=== PATIENT | female | born 1990 | race Caucasian/White ===

== ENCOUNTER → 2018-06-24 16:17 | Outpatient (CLI) | payer OTHER, SELFPAY ==
[2018-06-30 16:06] LABS: HPV Reflexed? NOT INDICATED
== END ==
PROVIDERS: Family Provider Family Medicine; PCP Family Medicine; Referring Provider Obstetrics & Gynecology; Visit Provider Obstetrics & Gynecology
DX: Z12.4 Encounter for screening for malignant neoplasm of cervix (principal)
CPT/HCPCS: 88175; G0145

== ENCOUNTER → 2019-08-16 | Outpatient (CLI) | payer BC, SELFPAY ==
[2015-02-10 07:29] VITALS: BMI 35.0
[2019-08-21 17:45] LABS: HPV HC, High Risk Negative (Negative); HPV Reflexed? YES, CHARGE PATIENT
== END | disposition home or self-care (01) ==
LOC: LABSPEC 16:26
PROVIDERS: PCP Family Medicine; Referring Provider Advanced Practice Midwife; Visit Provider Advanced Practice Midwife
DX: Z12.4 Encounter for screening for malignant neoplasm of cervix (principal)
CPT/HCPCS: 87624; 88175; G0145

== ENCOUNTER → 2019-11-08 | Outpatient (CLI) | payer BC, SELFPAY ==
[2015-02-10 07:29] VITALS: BMI 35.0
[2019-11-08 20:48] LABS: Chlamydia Trachomatis by PCR Negative (Negative); Neisserai gonorrhoeae by PCR Negative (Negative); Probe Check PASS; Sample Adequacy Control PASS; Specimen Processing Control PASS
== END | disposition home or self-care (01) ==
PROVIDERS: Visit Provider Obstetrics & Gynecology
DX: Z11.3 Encounter for screening for infections with a predominantly sexual mode of transmission (principal)
CPT/HCPCS: 87491; 87591

== ENCOUNTER → 2019-11-21 14:26 | Outpatient (CLI) | payer BC, SELFPAY ==
[2019-11-21 15:10] LABS: Absolute Lymphocyte Count 2.23 X10^3/uL (0.83-4.51); Basophil# 0.01 X10^3/uL; Basophil% 0.1 % (0-1); Eosinophil# 0.07 X10^3/uL; Eosinophils% 0.5 % (0-5); Hematocrit 38.6 % (37-47); Hemoglobin 12.9 g/dL (12.0-15.0); Lymphocyte # 2.23 X10^3/ul (4.0); Lymphocyte % 17.2 % (19-41); Mean Corp Hgb Conc 33.4 g/dL (32-36); Mean Corpuscular Hgb 28.3 pg (27.0-32.0); Mean Corpuscular Volume 84.6 fL (81-99); Mean Platelet Vol. 12.2 fl (6.2-12.0); Monocyte# 0.67 X10^3/uL; Monocyte% 5.2 % (0-10); NRBC Flagged by Analyzer 0 % (0-5); Neutrophil # 9.96 X10^3/uL (2.7-7.7); Neutrophil % 76.6 % (47-70); Platelet Count 238 K/mm3 (150-450); RBC Distribution Width CV 12.8 % (11.6-14.6); RBC Distribution Width SD 38.9 fl (35.1-43.9); Red Blood Count 4.56 M/mm3 (4.2-5.4)
[2019-11-21 15:13] LABS: Color, Urine Straw (Yellow); Glucose, Dipstick Normal (Normal); Ketone-Dipstick Negative (Negative); Leukocyte Esterase-Dipstick Negative /ul (Negative); Nitrite-Dipstick Negative (Negative); Occult Blood-Urine Negative /ul (Negative); Protein-Dipstick Negative (Negative); Urine Bilirubin Dipstick Negative (Negative); Urine Clarity Clear (Clear); Urine Urobilinogen Normal (Normal)
[2019-11-21 15:15] LABS: Protein, Urine (Random) < 6.0 mg/dL (<11.9)
[2019-11-21 15:36] LABS: Amphetamine Urine VISTA NEGATIVE (<1000 ng/mL); Barbiturate Urine VISTA NEGATIVE (< 200 ng/mL); Benzodiazepine Urine VISTA NEGATIVE (< 200 ng/mL); Cocaine Urine VISTA NEGATIVE (< 300 ng/mL); Ecstacy Urine VISTA NEGATIVE (< 500 ng/mL); Methadone Urine VISTA NEGATIVE (< 300 ng/mL); PCP Urine VISTA NEGATIVE (< 25 ng/mL); THC Urine VISTA NEGATIVE (< 50 ng/mL); Vista UDS pH Range 6
[2019-11-21 15:49] LABS: ALB/GLOB Ratio 0.8 RATIO (0.9-2.4); AST(SGOT) 12 U/L (15-37); Alanine Aminotransfer ALT/SGPT 24 U/L (13-56); Albumin, Serum 3.4 g/dL (3.2-5.0); Alkaline Phosphatase 57 U/L (45-117); Anion Gap 7 (5-15); BUN 7 mg/dL (7-18); BUN/Creat Ratio 9.4 RATIO (10-20); Calcium,Total 9.2 mg/dL (8.5-10.1); Chloride 106 mmol/L (98-107); Creatinine, Serum 0.75 mg/dL (0.55-1.02); EST Glomerular Filtration Rate 96 mL/min (>60); Est Glom Filt Rate - Afr Amer 117 mL/min (>60); Glucose 102 mg/dL (74-106); Potassium 3.6 mmol/L (3.5-5.1); Protein, Total 7.4 g/dL (6.4-8.2); Sodium Level 139 mmol/L (136-145)
[2019-11-22 08:30] LABS: HIV - WCH Non-Reactive (Nonreactive); Hepatitis B Surface Antigen Non-Reactive (Nonreactive); Hepatitis C Antibody Non-Reactive (Nonreactive); Rubella IgG 45.8 IU/mL
[2019-11-23 02:20] LABS: Prenatal RPR NONREACTIVE (NONREACTIVE)
== END ==
PROVIDERS: Visit Provider Obstetrics & Gynecology
DX: O16.1 Unspecified maternal hypertension, first trimester (principal)
CPT/HCPCS: 36415; 80053; 80307; 81002; 84156; 84443; 85025; 86703; 86762; 86803; 87340

== ENCOUNTER → 2020-04-01 | Outpatient (CLI) | payer BC, OTHER, SELFPAY ==
[2020-04-01 10:40] LABS: Hematocrit 35.2 % (37-47); Hemoglobin 11.5 g/dL (12.0-15.0); Mean Corp Hgb Conc 32.7 g/dL (32-36); Mean Corpuscular Hgb 28.4 pg (27.0-32.0); Mean Corpuscular Volume 86.9 fL (81-99); Mean Platelet Vol. 12.9 fl (6.2-12.0); Platelet Count 156 K/mm3 (150-450); RBC Distribution Width CV 13.1 % (11.6-14.6); RBC Distribution Width SD 40.9 fl (35.1-43.9); Red Blood Count 4.05 M/mm3 (4.2-5.4); White Blood Count 11.4 K/mm3 (4.4-11.0)
[2020-04-01 10:47] LABS: Glucose Challenge Gest 1H 50g 171 mg/dL (70-140)
== END | disposition home or self-care (01) ==
LOC: WOBLAB 09:39
PROVIDERS: Visit Provider Student in an Organized Health Care Education/Training Program
DX: Z34.82 Encounter for supervision of other normal pregnancy, second trimester (principal)
CPT/HCPCS: 36415; 82950; 85027

== ENCOUNTER → 2020-04-09 | Outpatient (CLI) | payer OTHER, SELFPAY ==
[2020-04-09 10:35] LABS: Glucose GTT-Gestation. Fasting 99 mg/dL (<105)
[2020-04-09 11:33] LABS: Glucose GTT-Gestational 1 Hr 198 mg/dL (<190)
[2020-04-09 12:49] LABS: Glucose GTT-Gestational 2 Hr 206 mg/dL (<165)
[2020-04-09 14:15] LABS: Glucose GTT-Gestational 3 Hr 153 L (<145)
== END | disposition home or self-care (01) ==
LOC: LAB 09:33
PROVIDERS: Referring Provider Obstetrics & Gynecology; Visit Provider Obstetrics & Gynecology
DX: O24.912 Unspecified diabetes mellitus in pregnancy, second trimester (principal); Z3A.00 Weeks of gestation of pregnancy not specified
CPT/HCPCS: 36415; 82951; 82952

== ENCOUNTER 2020-04-29 10:05 | Outpatient (RCR) | payer OTHER, SELFPAY | END 2020-05-04 23:59 | LOC: DC 10:05 | PROVIDERS: Visit Provider Obstetrics & Gynecology | DX: Z71.3 Dietary counseling and surveillance (principal); O24.410 Gestational diabetes mellitus in pregnancy, diet controlled; Z3A.00 Weeks of gestation of pregnancy not specified | CPT/HCPCS: 97802; G0108 ==

== ENCOUNTER 2020-05-23 16:00 | Outpatient (RCR) | payer OTHER, SELFPAY ==
[2015-02-10 07:29] VITALS: BMI 35.0
== END 2020-05-23 23:59 | disposition home or self-care (01) ==
LOC: DC 16:00
PROVIDERS: Visit Provider Obstetrics & Gynecology
DX: Z71.3 Dietary counseling and surveillance (principal); O24.410 Gestational diabetes mellitus in pregnancy, diet controlled; Z3A.00 Weeks of gestation of pregnancy not specified

== ENCOUNTER → 2020-05-29 | Outpatient (CLI) | payer OTHER, SELFPAY ==
[2015-02-10 07:29] VITALS: BMI 35.0
== END | disposition home or self-care (01) ==
LOC: LABSPEC 16:46
PROVIDERS: Visit Provider Obstetrics & Gynecology
DX: Z36.85 Encounter for antenatal screening for Streptococcus B (principal)
CPT/HCPCS: 87081

== ENCOUNTER 2020-06-01 12:00 | Outpatient (CLI) | payer OTHER, SELFPAY ==
[2020-06-01 12:08] VITALS: BMI 36.1
[2020-06-01 12:13] VITALS: TEMP 37
[2020-06-01 12:18] VITALS: BP 129/76; PULSE 80; TEMP 37
--- NOTE | 2020-06-01 13:05 | PCM.PN.BLA ---
Progress Note 29 yo presenting for NST for GDMA2. FHR 135/mod padmini/+accel/no decel. Occasional contraction. REACTIVE. Monitor extended per nursing protocol. Continued to be reassuring during stay. Patient feeling good movement, no LOF, VB. F/u NST Wednesday and NST/apt Wednesday. STROKE Vital Signs/Narrative: Vital Signs Temp Pulse BP 06/01/20 12:18 98.6 F 80 129/76 H 06/01/20 12:13 98.6 F
== END 2020-06-01 14:00 | disposition home or self-care (01) ==
LOC: WPOUT 12:07 → WP 12:07
PROVIDERS: Visit Provider Student in an Organized Health Care Education/Training Program
DX: O24.414 Gestational diabetes mellitus in pregnancy, insulin controlled (principal); Z3A.00 Weeks of gestation of pregnancy not specified
CPT/HCPCS: 59025; 59050; 99218; G0378

== ENCOUNTER → 2020-06-18 | Outpatient (CLI) | payer OTHER, SELFPAY ==
[2020-06-01 12:08] VITALS: BMI 36.1
== END | disposition home or self-care (01) ==
LOC: LABSPEC 17:25
PROVIDERS: Referring Provider Obstetrics & Gynecology; Visit Provider Obstetrics & Gynecology
DX: Z03.818 Encounter for observation for suspected exposure to other biological agents ruled out (principal)
CPT/HCPCS: 87635; C9803; U0003

== ENCOUNTER 2020-06-19 09:44 | Inpatient (IN) | payer OTHER, SELFPAY ==
[2020-06-19] VITALS (34 sets, daily range): BP systolic 109–154; BP diastolic 60–89; PULSE 65–131; RESP 16–18; TEMP 36.4–37.1; O2SAT 86–100; BMI 36.3
--- NOTE | 2020-06-19 09:43 | HP.PCM_ITS ---
History and Physical Date of Admission: 06/19/20 ACOG ANTEPARTUM RECORD - HISTORY AND PHYSICAL (06/19/2020) Name: LORETTA DESOUZA History of This : This is a 29-year-old G2, P1 who presents at 39+ weeks gestation in active labor. care is remarkable for a prior section with calculator predicting only a 44% chance of vaginal after with labor however, patient desires to attempt understanding the low probability of success. Patient also has gestational diabetes type A2 which is poorly controlled with Metformin. OB Physician: YOBANY 's Physician: DR ALEXANDER ...................................................................... : 1990 Age: 29 Address: [address] [place] [address] Phone: (h) [phone] (o) [phone] Insurance Carrier: [facility] [id number] Emergency Contact: SUSAN COLON [phone] ...................................................................... Final SHERON: 06/21/20 By Ultrasound: 9 weeks 4 days PARITY: (G-Total Pregnancies P-Fullterm,Premature,Induced AB,Spont AB, Ectopics, Multiple,Living) SHERON CONFIRMATION: By LMP: 09/15/19 By First Ultrasound Exam: 06/21/20 Final SHERON: 06/21/20 OB PROBLEM LIST: Obesity AFP and CF testing declined EPDS on 11/21/2019 = 0 GDMA2 Hx of Pyelonephritis, UTIs Migraine [place] history Past hx of abn PAPS with LEEP procedure Plans to breastfeed. 2010 breast reduction. 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 Illicit Drug Use - denies use of street drugs Sexual Activity - and [employer]IVE [employer] Residence - lives with Place of - [place], [place] Hours Worked - 16-24 Spouse-Sig Other Name - Tony Spouse-Sig Other Occupation - [employer] Spouse-Sig Other Phone No - [phone] Children Name(s) - Annie PRIOR DELIVERY HISTORY DEL DATE GEST LAB WT LB WT OZ TYPE ANES LABOR TX Feb 16 40 18 8 2 C-Sec Epidural No ANTEPARTUM FLOW CHART VISIT GE RTC FU F F WY U U DATE WK MD WKS HT PN HR M SS BP ED WT WY GL D EF ST __ ____ ___ __ __ ___ __ __ __ ___ __ __ __ ___ __ 15 Jun 39 CM 1 39 V + + 124/70 1+ 212 - - 3 50 -3 11 Jun 39 JM 1 39 V + + 128/74 0 212 - - 08 Jun 38 JM + + 100/64 0 208 - - 04 Jun JM 1 38 V + + 126/78 sl 209 - - Jun JM + + 110/74 tr 208 - - May JMW 1 38 V + + 130/88 0 208 ne ne May SHM 1 36 V + + 152/88 sl 207 tr ne May JM 2 34 V + + 130/84 0 205 tr - Apr JM + 142/74 0 205 - - 12 May 03 JM 1 30 - + + 132/78 sl 208 - - 28 Apr 01 CM 2 29 + + 124/70 sl 207 tr - Feb 25 CH 4 25 + + 134/76 0 207 tr - Jan 21 CH 4 on + 114/80 0 203 tr - Dec 16 CH 5 + O 164/86 201 ne ne November 10 CH 4 US 138/82 0 199 tr - ANTEPARTUM NOTE(S): Jun 18 2020: Jun 14 2020: Blood sugars obtained Jun 11 2020: Jun 07 2020: Blood sugars copied for review Jun 04 2020: May 29 2020: Marginal BS control; declines 39 wk induction May 22 2020: May 09 2020: see note Apr 26 2020: Apr 15 2020: Apr 01 2020: feeling well. Glucola drawn today. AM Mar 01 2020: slight edema in ankles at end of day Feb 01 2020: feeling well. Dec 24 2020: see note Nov 21 2019: feeling well. labs and NOB papers done. COMPREHENSIVE ANTEPARTUM NOTE(S): Jun 18 2020: Loretta and faizan are here for NST and visit. Feeling well. Baby active. Feet/ankles loli 1+ edema. NST read as non reactive per Dr TREVIZO. BPP done. [facility] here to do Covid swab as ordered. KERI. Jun 18 2020: 39/4w visit. NST reactive, BPP 02/09, GDMA2 - did not bring glucose log today. Planned for repeat section on 06/24/[address] Astudillo, Membranes sweeped for potential labor prior per patient request, consents signed today. Reviewed risks of including, but not lmited to risk of uterine rupture and demise. Risk of shoulder dystocia reviewed. COVID done today. Has apt with NST 06/20. CM Jun 14 2020: Loretta is here at 39 weeks for her NST, She states that she feels great. She denies cramping/spotting/LoF. Good FM reported. No edema noted. Blood sugars obtained for review. Four ctx's noted on EEFM, and Loretta feels these as tightening. NST reactive, read per Dr. Sidney Ortega. AW Jun 14 2020: 39wk, GDMA2 Fasting 100 2hr PP 110-160 on Metformin 1g BID. Rediscussed insulin and the risks for baby including demise, pt declines insulin and states understanding. Also rediscussed TOLAC/ at 39wks for uncontrolled diabetes, including risk of and shoulder dystocia. Pt states understanding but would like TOLAC at 40+ weeks. Will continue twice weekly testing. Agrees to IOL at 40wk/3d on 06/24/20. Is considering sweeping of membranes at next visit. SELENA Jun 11 2020: Loretta is here at 38.4 w for NST for GDM on po meds. States fasting sugars are 90s to low 100s and PP low 100s. Baby active. No edema. Continues to teach. NST read as reactive by Dr WALTERS. KERI. Jun 07 2020: Loretta is here for her NST at 38 w 0 d. She states that she feels great. She reports that she feels good FM. Loretta denies spotting/LoF. She feels occasional mild ctx's. Slight edema noted below knees. Blood sugars for the last week copied for review at her PNV today. She states that she is tolerating Metformin well. Acoustic stim used x 1 during NST. NST reactive, read per Dr. Sidney Ortega. AW Jun 07 2020: 38wk, GDMA2 on 1000mg Metformin BID fasting 80-100 2hr PP 110. Discussed elevated fastings, declines insulin or change in medications. NST twice weekly. Declines 39wk repeat c/s or IOL . Only agrees to IOL after 06/21/20 because of work. Understands risk of demise with GDMA after 39wk. Also discussed risk of and suggested repeat C/S, pt declines. Educated on risk of shoulder dystocia, pt states understanding. Will rediscuss and time of IOL at next visit. SELENA Jun 05 2020: H taken to OB. tkg May 29 2020: Loretta is here today for PNV. Had US today. Blood sugars logged and will be scanned into chart. States she is feeling well and without complaints. Good FM. No swelling noted. Urine dipped neg and neg. LARC form signed and declined. GBS completed. LSS May 29 2020: Discussed success rate and encouraged Repeat . May 22 2020: Loretta is here for PNV. Current BS copied and will be scanned. Having good FM. Slight swelling noted in hands and ankles. BP elevated. 152/88 on right with reg cuff and 148/88 on left with same. Lying on left with feet/legs up and will recheck after 10 min. Urine dipped tr and neg. Had previous discussion with SELENA about being induced. Would prefer not and would rather go into spontaneous labor. BP after 10 min 132/68. 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 LSS May 22 2020: US today, EFW 3099g (83rd%), AC 94th%, HC/AC 0.99, SARMAD 11.4cm, MVP 4cm, CEPHALIC. Pt indicates she does not desire IOL until due date due to social issues including work commitments and just wants to make it to the last day of school - she is ok with being induced the day after that, which is 40wga I reviewed with her national recommendation for GDMA2 to proceed with delivery at 39 weeks gestation. We discussed risk of stillbirth generally increasing at 40 3/7 wga and later and risk increased further with worsened hyperglycemia. Expressed my greater concern for risk for shoulder dystocia with increasingly uncontrolled blood sugars (HC/AC currently reassuring) as well as hypoglycemia. Discussed that our role as physicians is to give medical recommendations and peer financial counselor her regarding her risks. She may choose to follow those or disregard those, but she must be aware that there may be negative consequences choosing to go against medical advise. She reports understanding. Fasting blood sugars remain elevated despite Metformin 2g daily total. I again suggested insulin and pt refuses indicating excessive cost. In light of that, I recommend blackberry tea daily, trial myoinositol 2g bid. Discussed evening snacks alternatives. Pt to call in 2-3 days with update on fasting blood sugar with alternative snack choices. Labor, FM precautions. PNV and BPP next week. May 09 2020: Declines Influenza and will have Tdap. Wants but no paperwork today. Wants to review BS's and will write these down to review as they are on her phone. FM reviewed. Reports sad about Marizol not being here but understands even if she has needs physician back up. LMT May 09 2020: 33wks, GDMA2 Fasting 110's 2hr PP 110-120 currently on Metformin 500mg BID. Discussed blood sugar results with pt including risk for demise, increase risk of shoulder distocia, failed , hyopglycemia along with the need to start insulin. Pt still refuses to start insulin and is not worried about the risks. Will increase to Metformin 1g twice daily. This is near max dose. Pt refutes blood sugar check in 1 week, will follow up in 2 weeks for blood glucose and Growth U/s. Pt still desires regardless of risks or success. Wants delayed 3-5 minute cord clamping. JM Apr 26 2020: Loretta is her with SO for PNV. States that she is feeling well. States good FM. No edema present today. States that she is not taking the insulin injections as they are to costly, she would like to try oral insulin. Expressed she wants to discuss delayed cord clamping and her plan. Medications and allergies reviewed today. No other concerns or complaints expressed today. JASKARAN Apr 26 2020: 32wk, Growth u/s AGA. Will repeat q4wk growth u/s and start twice weekly BPPs at 36wks. Fasting 110 2hr PP 110-120's. Sent Levemir to pharmacy last visit, pt did not pick up man because it's too expensive, $100. Offered NPH but refuses insulin. Wants metformin because bottle and glass inspector says she can control it with diet. Discussed worse outcomes with metformin and effects on baby. Pt stated understanding and wishes to proceed. Rx Metformin 500mg BID sent. Desires , calculated 59% success rates. SELENA Apr 15 2020: Has been taking BS at home 4x a day and loads directly into her phone for us to view. Fastings have been_. Postprandials have been_. Apr 15 2020: Loretta is her for PNV. States that she is feeling well. Slight edema present in her ankles as she is on concrete all day at work. + FM. Medications and allergies reviewed today. No other complaints or concerns expressed today. LJW Apr 15 2020: 30wk, GDMA1 but based on BS Fasting 115 2hr PP 130's now GDMA2 started on Levemir 10U BID. For growth u/s at next visit. Educated on insulin in and blood sugar controll. Will need q4wk growth u/s and weekly BPP and weekly NST starting at 32 weeks. SELENA Apr 01 2020: 1 Hr Glucose, CBC drawn this morning. kbm Apr 01 2020: 28/3w visit. Glucola drawn today. Feeling well, no LOF/VB/cramping. +FM. Discussed considering macrobid suppression with hx of macrobid with hx of pyelonephritis in last . Will think about and discuss next visit. Plans on TDap, considering flu. Mar 01 2020: Loretta is here for PNV. States good FM noted. Glucola and instruction sheet given. No questions. No edema although she states she is b eginning to notice ankle swelling by end of work day. Feels good with no N/V. LSS Mar 01 2020: Glucola given today with instructions for next visit and third trimester labs. FHR 130s. Reports having good FM. To return in 4 weeks and then to start Q2 week appts. Discussed calculator with SHM. Discussion with patient on %. SHe states she was dilating fine with her daughter and went unmedicated for 15 hours before her hip [pain was so bad she got the epidural. She states once the epidural was placed the heart rate was dropping and then had the csection. She understands Dr. B stated she had a narrow pelvic. Her and would still like to TOLAC and understands ALL risks and benefits. She is very open minded to TOLAC and trusts conventional underwriter and SHM to let her labor unless there was a medical reason that would tell us she needs a csection. For this reason she is willing to have the INT and debating the epidural. Understands without epidural and emergency section she would be put to sleep. Is trying to watch her weight. States she failed the 1H GTT but apssed the 3H gtt with her last . After school her feet are swollen, but conventional underwriter notes she is wearing snadals. Advised compression socks and a supportive tennis shoe would be better for the end of the day edema. Is open to meeting JW and [facility], but is adamant on CNM providing . After full decision, shared d ecision making and will allow TOLAC as long as everything continues okay throughout her third trimester. If son is measuring too big or any other risk factors occur then we will advise section. - Feb 02 2020: Reports +FM even with anterior placenta. Anatomy US today reveals male fetus, AGA at 74th% for EFW, cervical length 4.46cm, SARMAD 11.68, FHR 138, all anatomy visualized and WNL. Reviewed movements with anterior placenta and states understanding. and her are both excited. They will tell Annie today that she's having a baby brother. To return in 4 weeks - Dec 25 2019: Here today for routine 2nd trimester visit. FHR 155. Discussed FM any time, but may not feel until 20 weeks+. Started taking baby ASA in 2nd trimester. Has no concerns and is feeling well. To return in 5 weeks for anatomy US and PNV. - Dec 25 2019: Loretta is here today for her 2nd trimester visit. She c/o swelling after a car trip to [place]. Repeat BP was 136/76. Overall she is feeling good. [place] Dec 06 2019: TELEHEALTH NOB VISIT. Loretta is a 29 year old with an SHERON of 07/01/2020, current GA is 11 w 5 d. She and her , Tony, reside with their 4 year old daughter, who was delivered by C/S following 18 hrs of labor and being OP presentation. Past history updated. Loretta would like to have a with this , at [facility], and will breastfeed. She states that she had a breast reduction in 2010, and had issues with milk supply when she nursed her daughter. Loretta states that she feels very well, and has not any nausea/vomiting. labs and NOB paperwork completed at a prior visit. Office practice patterns reviewed, and she states that she has read through the office handbook, including common OTC medications approved/not approved for use during , emergency/danger signs to report, and how to contact the office during/after hours. She reports a history of UTI's and had Pyelonephritis during her last , and knows to call the office if she suspects a UTI. Round ligament pain discussed. Loretta is a life long non- smoker, and denies use of drugs or ETOH. She has been taking an OTC vitamin that contains DHA and states that she tolerates this well. Genetic Screening form completed, she has a sister who last a baby to Potter's Syndrome. AFP and CF testing declined, consent signed as such, Loretta denies a history of depression/anxiety. EPDS on 11/21/2019 = 0. She walks almost daily for physical activity, and is aware of lifting restrictions. water/dietary/caloric recommendations discussed, including recommended weight gain, limiting empty calories, limiting caffiene to one cup a day, and she has a printed guide for food safety. Loretta states that she understands all information provided during 45 minute phone visit, and has no questions following same. She will be going to a beach for vacation next week, and has discussed precautions with Rhoda Montana CNM. AW New Nov 21 2019: Dating US today consistent with LMP giving her SHERON of 12-18-20 and GA of 9w4d.FHR on US today 155. COrpus luteal cyst seen on right ovary measuring 3.1x3x2.8, but denies any pain at all. Will review at 20 weeks. BP slightly elevated, but reviewed previous BPs from practice and looks like 130-140/80-90 is baseline. Can't remember if issues with first . Does have a headache so will add pre-e labs to panel today. To be sent to the hospital since free labs done here. Discussed adding 81mg aspirin QD starting at 12 weeks. Both her and partner are very excited. Has NOB RN visit already scheduled. Plans to go to [place] in December and reviewed in car, at stops to wear mask and proper hand hygiene and disinfecting house when they get there. Is going with just her parents and sister. Planning to use proper precautions. No other questions or concerns. To return in 4 weeks for routine PNV. Understands may call with any questions. - NEW Nov 08 2019: Missed menses appt today and +UPT in office. Reports LMP of 09-15-19 with an SHERON of 06-21-20 making her GA 7w5d. This is her second and just had Mirena removed in August. At that time had pap which was WNL. Taking PNV already and is not a smoker. Had a primary csection due to CPD with direct OP baby. Repeat csection vs discussed. Discussed GC/CT today on urine, office practices, and reviewed NOB/grinding wheel inspector packets. Will return in 2 weeks for NOB US, NOB RN([employer]), labwork and PNV. Allowed to bring 1 support person to that appt with US. Discussed Covid-19 precautions in being higher risk. States understanding and when to call. Has no other questions or concerns. - Nov 08 2019: Loretta is being seen for missed menses. . UPT in office is positive. Nonsmoker. LMP 09/15/19. Pt is baout 7 weeks and 5 days. SHERON 06/21/20. Pt had questions regarding COVID and a wedding she is in. Last pap 2019 WNL, pt had Mirena IUD out [address]/NG urine sent for any cervical infections. information reviewed and given to pt. Medications and allergies are up to date. AM Aug 16 2019: Loretta is here for an annual exam today. Her last pap was in 2017, she has a history of abnormal pap tests and positive HPV. She currently has a Mirena IUD that was placed in very early 2015. Patient would like to discuss having device removed as she is thinking about attempting soon. Patient has rare spotting with the IUD, Her last episode of spotting was in the beginning of July 2019. Patient denies any problems or complaints at this time. PHQ-9 form completed by patient. knw Aug 16 2019: --As above; denies changes in medical, family or social history; , monogamous, feels safe in relationship and environment; denies dyspareunia or stress incontinence; has PCP and dental provider; Mirena for contraception, would like to have removed today, planning to attempt conception; H-T exam w/breast and pelvic WNL; pap done today, IUD removed with ring forceps, intact, showed to patient - KVW REVIEW OF SYSTEMS: GENERAL - Denies fever, or chills SKIN - Denies rash, new skin lesions, or change in moles EYES - Denies blurred vision, or change in visual acuity EARS - Denies ear pain, or difficulty hearing NOSE - Denies nasal congestion, discharge, or bleeding MOUTH - Denies sore throat, or difficulty swallowing NECK - Denies pain or swelling RESPIRATORY - Denies shortness of breath, cough, wheezing CARDIOVASCULAR - Denies palpitations, chest pain, orthopnea, PND, peripheral edema, syncope or claudication GASTROINTESTINAL - Denies nausea, vomiting, diarrhea, constipation, Denies abdominal pain, melena and or bright red blood GENITOURINARY - Denies dysuria, frequency of urination, urgency, or hesitancy MUSCULOSKELETAL - Denies joint or muscle pain, or back pain NEUROLOGICAL - Denies localized numbness, weakness, or tingling PSYCHIATRIC - Denies depression, anxiety, substance abuse or suicide attempts ENDOCRINE - Denies heat or cold intolerance, weight loss or gain, increasing thirst HEMATO-IMMUNOLOGIC - Denies easy bruising, bleeding, oral ulcerations or recurrent infections GENETICS SCREENING: Age 35+ years: No Thalassemia: No Neural Tube Defect: No Down Syndrome: No DINORAH-SACHS: No Sickle Cell Disease: No Hemophilia: No Musc. Dystrophy: No Cystic Fibrosis: No-declines screening Addison Chorea: No Mental Retardation: No Fragile X: No Other genetic: No Other defects: No SABs/still births: No Drugs since LMP: No INFECTION HISTORY: High risk AIDS: No High risk Hepatitis: No Exposed to TB: No Exposed to Herpes: No Rash/viral illness since LMP: No History of STD: No MENSTRUAL HISTORY: *Menses Amount/Duration: 1 dayMenses Regularity: IrregularFrequency: variableMenarche (Age Onset): 8* PAST SUMMARY: PARITY: 1. Total Pregnancies............ 2 2. Full Term Pregnancies........ 1 3. Premature.................... 0 4. Abortions - Induced.......... 0 5. Abortions - Spontaneous...... 0 6. Ectopics..................... 0 7. Multiple Births.............. 0 8. Living Children.............. 1 PAST #1: Date of :.................. 02/10/15 Gestation Weeks:................ 40 Length of labor(hours):......... 18 Sex:............................ F Weight-lbs:............... 8 Weight-oz:................ 2 Type of Delivery:............... C-Sect Type of Anesthesia:............. Epidural Place of Delivery:.............. [place] Treatment of Labor?:.... No Comment: OP PHYSICAL EXAMINATION General Appearence: 29 yo female in no acute distress Vital Signs: AF, VSS Heart: RRR without rubs or gallops Lungs: CTA x 2 Breasts: deferred Abdomen: gravid Pelvis: Cervix: Presentation: cephalic Station: Fetus: Size: AGA Movement: present Heart: present Labs for : LORETTA DESOUZA since 09/25/2019 ORDER DATEIN DESCRIPTION VALUE UNITS RANGE A+ COMMENT PROGRESS NOTE 06/01/20 [facility] Medical Records Department [address] [place] [address] Progress Note 06/01/20 1305 MR#: [id number] Acct: [id number] Name: LORETTA DESOUZA Rep #: [id number] : 1990 29 From: Carrie Ortega DO PCP: Care Physician, No Primary Status:REG CLI Y Location: [place] [address] Progress Note 29 yo presenting for NST for GDMA2. FHR 135/mod padmini/+accel/no decel. Occasional contraction. REACTIVE. Monitor extended per nursing protocol. Continued to be reassuring during stay. Patient feeling good movement, no LOF, VB. F/u NST Wednesday and NST/apt Wednesday. STROKE Vital Signs/Narrative: Vital Signs Temp Pulse BP 06/01/20 12:18 98.6 F 80 129/76 H 06/01/20 12:13 98.6 F 06/01/20 1358 Date Carrie Ortega DO Cosigner Signature (if applicable): Date CC: Signed Reviewed by GONZALO DOMINGO, GROUP B STREPTOCOCCUS 05/29/20 NOTE Original Ordering Provider: Gonzalo Domingo Group B Beta Streptococcus is not isolated. Reviewed by GONZALO ROSALES 3HR 100G 04/09/20 NOTE Original Ordering Provider: AUSTIN Montana GLU GTT-FASTING 99 mg/dL <105 GLUCOSE TOLERANCE TEST FOR Reference Interval GESTATIONAL DIABETES Fasting <105 mg/dL 1 hour <190 mg/dl 2 hour <165 mg/dl 3 hour <145 mg/dl GLU GTT- 1HR 198 mg/dL <190 H GLU GTT- 2HR 206 mg/dL <165 H GLU GTT- 3HR 153 L <145 H Reviewed by NEVAEH w Reviewed by NEVAEH GLUCOSE CHALLENGE GEST 1H 50G 04/01/20 NOTE Original Ordering Provider: Carrie Ortega GLU GEST 50G 1H 171 mg/dL 70-140 H Reviewed by NEVAEH CBC-COMPLETE BLOOD CNT NO DIFF 04/01/20 NOTE Original Ordering Provider: Carrie Ortega WBC 11.4 K/mm3 4.4-11.0 H RBC 4.05 M/mm3 4.2-5.4 L HGB 11.5 g/dL 12.0-15.0 L HCT 35.2 % 37-47 L MCV 86.9 fL 81-99 MCH 28.4 pg 27.0-32.0 MCHC 32.7 g/dL 32-36 RDW CV 13.1 % 11.6-14.6 RDW SD 40.9 fl 35.1-43.9 PLT 156 K/mm3 150-450 MPV 12.9 fl 6.2-12.0 H Reviewed by NEVAEH RPR 11/21/19 NOTE Original Ordering Provider: AUSTIN Montana RPR NONREACTIVE NONREACTIVE Reviewed by NEVAEH HEPATITIS C ANTIBODY 11/21/19 NOTE Original Ordering Provider: AUSTIN Montana HEPATITIS C AB Non-Reactive Nonreactive Non Reactive: < 0.8 Equivocal: >/= 0.8 to < 1.0 Reactive: >/= 1.0 The CDC recommends that a reactive/equivocal HCV antibody result be followed up by the HCV Nucleic Acid Amplification test ([id number]) Reviewed by NEVAEH HEPATITIS B SURFACE ANTIGEN 11/21/19 NOTE Original Ordering Provider: AUSTIN Montana HEPB SURFACE AG Non-Reactive Nonreactive Reviewed by NEVAEH HIV - [facility] 11/21/19 NOTE Original Ordering Provider: AUSTIN Montana HIV - [facility] Non-Reactive Nonreactive Reviewed by NEVAEH RUBELLA IGG 11/21/19 NOTE Original Ordering Provider: AUSTIN [place] RUBELLA IGG 45.8 IU/mL Antibody results Interpretation of Immune Status < 5 IU/ml Presumed Non-immune 5 - < 10 IU/ml Equivocal > or = 10 IU/ml Presumed Immune Reviewed by NEVAEH peacock T AND S-NO CHARGE W/PNP 11/21/19 Reason for Type AND Screen/Red Cells: Surgery? N [facility]~[address] [place], [address]~ BLOOD TYPE GEL A POSITIVE N AB SCREEN GEL NEGATIVE N Reviewed by NEVAEH THYROID STIM HORMONE (TSH) 11/21/19 NOTE Original Ordering Provider: AUSTIN Montana TSH 0.50 uIU/mL 0.358-3.74 Reviewed by NEVAEH COMPREHENSIVE METABOLIC PROFIL 11/21/19 NOTE Original Ordering Provider: AUSTIN Montana GLUw 102 mg/dL 74-106 Fasting Glucose result from 100 to 125 mg/dL suggests IMPAIRED HOMEOSTASIS per A.D.A. criteria. Please note revised GLUCOSE reference range effective 08/06/2017. BUN 7 mg/dL 7-18 CREAT,SERUM 0.75 mg/dL 0.55-1.02 The validity of the calculated GFR AND GFRAA in patients over 70 years has not been determined. Clinical correlation is essential. EST GFR 96 mL/min >60 Non- GFR Calc EST GFR - AA 117 mL/min >60 GFR Calc w BUN/CRE 9.4 RATIO 10-20 L T PROT 7.4 g/dL 6.4-8.2 ALB 3.4 g/dL 3.2-5.0 GLOB 4.0 g/dL 2.2-4.2 A/G 0.8 RATIO 0.9-2.4 L CA 9.2 mg/dL 8.5-10.1 AST 12 U/L 15-37 L ALK P 57 U/L 45-117 ALT 24 U/L 13-56w T BILI 0.30 mg/dL 0.20-1.00 For patients on eltrombopag therapy, use of Dimension [place] TBIL is not recommended. NA 139 mmol/L 136-145 K 3.6 mmol/L 3.5-5.1 CL 106 mmol/L 98-107 CO2 26.0 mmol/L 21.0-32.0 GAP 7 5-15 Reviewed by NEVAEH URINE DRUG SCREEN (VISTA) 11/21/19 NOTE Original Ordering Provider: AUSTIN Montana TO BE CONFIRMED CONFIRMATORY TESTING FOR ALL POSITIVE URINE DRUG SCREEN RESULTS WILL ONLY BE SENT OUT UPON PHYSICIAN ORDER. VISTA Urine Drug Screen methods provide only preliminary analytical test results. A more specific alternate chemical method must be used in order to obtain a confirmed analytical result. Gas chromatography/mass spectrometery (GC/MS) is the preferred confirmatory method. Clinical consideration and professional judgement should be applied to any drug of abuse test result, particularly when preliminary positive results are used. URINE TCA TESTING MUST BE ORDERED SEPARATELY. USE TEST MNEMONIC: [facility] UDS PH 6 AMPHETAMINES NEGATIVE <1000 ng/mL BARBITIURATES NEGATIVE < 200 ng/mL BENZODIAZIPINE NEGATIVE < 200 ng/mL COCAINE NEGATIVE < 300 ng/mL ECSTACY NEGATIVE < 500 ng/mL METHADONE NEGATIVE < 300 ng/mL OPIATES NEGATIVE < 300 ng/mL PCP NEGATIVE < 25 ng/mL THC NEGATIVE < 50 ng/mL Reviewed by NEVAEH PROTEIN, URINE (RANDOM) 11/21/19 NOTE Original Ordering Provider: AUSTIN Montana PROTEIN,UR.RAN. < 6.0 mg/dL <11.9 Reviewed by NEVAEH URINALYSIS, ROUTINE (DIPSTICK) 11/21/19 NOTE Original Ordering Provider: AUSTIN Montana COLOR Straw Yellow CLARITY Clear Clear GLUCOSE, UR Normal mg/dl Normal BILIRUBIN URINE Negative mg/dL Negative KETONE UR Negative mg/dl Negative SP.GR. DIPSTX 1.010 1.002-1.030 PH UR 7.0 5.0 - 8.0 PROT DIPSTX Negative mg/dl Negative UROBILI Normal mg/dl Normal NITRITE UR Negative Negative OCCULT BLOOD-UR Negative /ul Negative LEUK ESTERASE Negative /ul Negative Reviewed by NEVAEH CBC W/DIFF, AUTOMATED 11/21/19 NOTE w Original Ordering Provider: AUSTIN Montana WBC 13.0 K/mm3 4.4-11.0 H RBC 4.56 M/mm3 4.2-5.4 w HGB 12.9 g/dL 12.0-15.0 HCT 38.6 % 37-47 MCV 84.6 fL 81-99 MCH 28.3 pg 27.0-32.0 MCHC 33.4 g/dL 32-36 RDW CV 12.8 % 11.6-14.6 RDW SD 38.9 fl 35.1-43.9 PLT 238 K/mm3 150-450 MPV 12.2 fl 6.2-12.0 H NEUT% 76.6 % 47-70 H LY% 17.2 % 19-41 L MONO% 5.2 % 0-10 EO% 0.5 % 0-5 BASO% 0.1 % 0-1 IM GRAN %w 0.400 % 0.0-0.9 IG% - Immature Granulocytes (promyelocytes, myelocytes and metamyelocytes) > 1% indicates that a LEFT SHIFT is Present. ABSOLUTE NEUT 10.0 X10 3/uL 2.0-7.7 H ABSOLUTE LYMPH 2.23 X10 3/uL 0.83-4.51 NRBC, FLAGGED 0 % 0-[address] BY PCR 11/08/19 NOTE Original Ordering Provider: AUSTIN MARTE [facility] PCR Negative Negative NG BY PCR Negative Negative Reviewed by NEVAEH Impression /Plan: 39+ week intrauterine in active labor. Plan rupture of membrane and placing internal monitors. Preparations in progress for delivery.
[2020-06-19] MEDS: Lactated Ringers 1,000 ML 50 ML IV (09:45)
[2020-06-19] MEDS: Lactated Ringers 500 ML 999 ML IV (09:48)
[2020-06-19 10:05] LABS: Bedside Glucose 81 mg/dL (70-110)
[2020-06-19 10:11] LABS: Absolute Lymphocyte Count 1.73 X10^3/uL (0.83-4.51); Absolute Neutrophil Count 16.5 X10^3/uL (2.0-7.7); Basophil# 0.02 X10^3/uL; Basophil% 0.1 % (0-1); Eosinophils% 0.5 % (0-5); Hematocrit 39.8 % (37-47); Hemoglobin 13.2 g/dL (12.0-15.0); Lymphocyte # 1.73 X10^3/ul (4.0); Lymphocyte % 8.9 % (19-41); Mean Corp Hgb Conc 33.2 g/dL (32-36); Mean Corpuscular Hgb 27.7 pg (27.0-32.0); Mean Corpuscular Volume 83.6 fL (81-99); Mean Platelet Vol. 14.1 fl (6.2-12.0); Monocyte# 0.92 X10^3/uL; Monocyte% 4.8 % (0-10); NRBC Flagged by Analyzer 0 % (0-5); Neutrophil # 16.46 X10^3/uL (2.7-7.7); Neutrophil % 85.1 % (47-70); POSITIVE MORPHOLOGY YES; Platelet Count 149 K/mm3 (150-450); RBC Distribution Width SD 39.7 fl (35.1-43.9); Red Blood Count 4.76 M/mm3 (4.2-5.4); White Blood Count 19.4 K/mm3 (4.4-11.0)
[2020-06-19 10:26] LABS: Differential Indicated SCAN CRITERIA MET
[2020-06-19] MEDS: fentaNYL-bupivacaine (epidural) 100 ML BAG EPIDURAL (11:07)
[2020-06-19 11:20] LABS: Bedside Glucose 82 mg/dL (70-110)
[2020-06-19 12:26] LABS: Bedside Glucose 94 mg/dL (70-110)
[2020-06-19 13:25] LABS: Bedside Glucose 92 mg/dL (70-110)
[2020-06-19] MEDS: Oxytocin 30 units/NS 500 ml 30 UNITS/500 ML IV.SOLN 334 UNITS IV (14:14)
--- NOTE | 2020-06-19 14:33 | PCM.OPRPT ---
Vaginal Delivery Maternal Presentation: Active Labor Amniotic Membrane Rupture Type: Artificial Amniotic Fluid Description: Clear Final SHERON: 06/21/20 Final SHERON Source: US <20 weeks Gestational age: 39 Weeks and 5 Days Date of Procedure: 06/19/20 Pre-Operative Diagnosis: IUP, Gestational Diabetes Type A2, Prior Section Post-Operative Diagnosis: IUP, Gestational Diabetes Type A2, Prior Section Surgery/ Procedure Performed: Vacuum Assisted Vaginal Delivery Type of Anesthesia: Epidural Description of Procedure: Spontaneous vaginal delivery, vaginal after , of a viable male with Apgars of 8/9 from an occiput anterior presentation with clear amniotic fluid and normal three-vessel placenta with a true knot in the cord. First-degree midline episiotomy extended to a second-degree midline laceration repaired in layers with 3-0 Rapide suture under epidural. Kiwi vacuum suction used x2 gentle pulls from low outlet to expedite delivery of the head due to variable decelerations with pushing. Some adherent placenta was removed with a banjo curetting after delivery of the placenta. Sponges okay. Delivery physician: Rigoberto Astudillo MD. Presentation: Vertex Placental Delivery Description: Spontaneous Placenta Disposition: [facility] Cord Vessel Description: 3 Vessels Cord Entanglement: True Knot(s) - X1 Estimated Blood Loss: 400 cc Infant A gender: Male (1 minute): 8 (5 minute): 9 Episiotomy Description: Midline, 1st degree Laceration: Midline, 2nd degree Medications given after delivery: IV Pitocin Complications: None
--- NOTE | 2020-06-19 14:38 | DCINST_ITS ---
Discharge Diet: No Restrictions Discharge Activity: May Shower, May Take a Tub Bath May resume sexual activity in: 4-6 weeks Additional Activity Instructions:: Nothing in the vagina for 4-6 weeks. You may return to work/school in 6 weeks. Call your doctor if you observe: Fever of 101 or Higher, Inability to urinate, Inability to have a bowel movement, Using more than one pad per hour Additional Instructions: If you experience any of the following, contact your healthcare provider. * Bleeding that soaks a pad every hour for 2 hours * Fever 100.4 or higher * Unrelieved incision or abdominal pain * Swelling, redness, discharge or bleeding from your incision or episiotomy site * Your incision begins to separate * Problems urinating (including inability to urinate or burning while urinating). * Visual changes * Severe headache * Flu-like symptoms * Pain or redness in one of both of your breasts * Pain, warmth, tenderness or swelling in your legs, especially the calf area * Frequent nausea and vomiting * Symptoms of depression or anxiety If you experience any of the following, call 911 or go to the nearest Emergency Room. * Chest pain * Problems breathing * Seizure activity * Partial or complete paralysis of a body part, slurred speech, weakness or drooping of the face, or a sudden inability to walk or hold your balance Allergies/Adverse Reactions: Allergies venom-honey bee [bee venom (honey bee)] Allergy (Verified 09/21/14 18:30) Unknown Medications to take at Discharge Aspirin [Aspirin, Baby] 81 mg PO DAILY@0800 06/01/20 Vits [Prenatabs FA] 1 tab PO DAILY 06/01/20 Please Follow Up With: Twan Ortega MD - [phone] When: Call to make an appointment with your doctor in 6 weeks. Primary Care Physician: Care Physician,No Primary [Primary Care Provider] - Test Results: Test results from this visit will be discussed in further detail at your follow- up appointment, if applicable.
--- NOTE | 2020-06-19 14:38 | PCM.DCVAG ---
Discharge Diet: No Restrictions Discharge Activity: May Shower, May Take a Tub Bath May resume sexual activity in: 4-6 weeks Additional Activity Instructions:: Nothing in the vagina for 4-6 weeks. You may return to work/school in 6 weeks. Call your doctor if you observe: Fever of 101 or Higher, Inability to urinate, Inability to have a bowel movement, Using more than one pad per hour Additional Instructions: If you experience any of the following, contact your healthcare provider. Bleeding that soaks a pad every hour for 2 hours Fever 100.4 or higher Unrelieved incision or abdominal pain Swelling, redness, discharge or bleeding from your incision or episiotomy site Your incision begins to separate Problems urinating (including inability to urinate or burning while urinating). Visual changes Severe headache Flu-like symptoms Pain or redness in one of both of your breasts Pain, warmth, tenderness or swelling in your legs, especially the calf area Frequent nausea and vomiting Symptoms of depression or anxiety If you experience any of the following, call 911 or go to the nearest Emergency Room. Chest pain Problems breathing Seizure activity Partial or complete paralysis of a body part, slurred speech, weakness or drooping of the face, or a sudden inability to walk or hold your balance Allergies/Adverse Reactions: Allergies venom-honey bee [bee venom (honey bee)] Allergy (Verified 09/21/14 18:30) Unknown Medications to take at Discharge Aspirin [Aspirin, Baby] 81 mg PO DAILY@0800 06/01/20 Vits [Prenatabs FA] 1 tab PO DAILY 06/01/20 Please Follow Up With: Twan Ortega MD - [phone] When: Call to make an appointment with your doctor in 6 weeks. Primary Care Physician: Care Physician,No Primary [Primary Care Provider] - Test Results: Test results from this visit will be discussed in further detail at your follow-up appointment, if applicable.
[2020-06-19 15:10] LABS: Bedside Glucose 78 mg/dL (70-110)
[2020-06-19] MEDS: Cefazolin 2 GM in 0.9% Normal Saline 100 ML IV (16:41)
[2020-06-19] MEDS: 0.9% Saline Lock 10 ML Syringe IV (17:28)
[2020-06-19] MEDS: Acetaminophen 500 MG Tablet 1000 MG PO (19:38)
[2020-06-20] MEDS: Ibuprofen 600 MG Tablet PO (04:27)
[2020-06-20 04:36] VITALS: BP 121/79; PULSE 67; RESP 18; TEMP 36.3
[2020-06-20 04:52] LABS: Hematocrit 31.1 % (37-47); Hemoglobin 10.5 g/dL (12.0-15.0); Mean Corp Hgb Conc 33.8 g/dL (32-36); Mean Corpuscular Hgb 28.6 pg (27.0-32.0); Mean Corpuscular Volume 84.7 fL (81-99); Mean Platelet Vol. 13.9 fl (6.2-12.0); Platelet Count 120 K/mm3 (150-450); RBC Distribution Width CV 13.2 % (11.6-14.6); Red Blood Count 3.67 M/mm3 (4.2-5.4); White Blood Count 13.8 K/mm3 (4.4-11.0)
[2020-06-20 05:56] LABS: Bedside Glucose 104 mg/dL (70-110)
--- NOTE | 2020-06-20 07:31 | PN.OBGYN_ITS ---
Subjective: No overnight complaints. Pain well controlled. Minimal lochia. - Physical Exam Vitals/I&O's: Vital Signs Temp Pulse Resp BP Pulse Ox 97.3 F L 67 18 121/79 H 99 06/20/20 04:36 06/20/20 04:36 06/20/20 04:36 06/20/20 04:36 06/19/20 19:39 Oxygen Delivery Method Room Air Weight: 211 lb 6.773 oz Body Mass Index (BMI) 36.3 Intake and Output for Last 24 Hours 06/18/20 06/19/20 06/20/20 23:59 23:59 23:59 Intake Total 2895.83 / 2895.83 Output Total 900 / 900 Balance 1994. / General: Alert, Oriented x3, Cooperative, No apparent distress HEENT: Atraumatic, PERRLA, Normocephalic Oral: Moist Mucosa Neck: Supple, No JVD Abdomen: Soft, Non Tender, - - Fundus firm and below umbilicus Extremities: No clubbing, No cyanosis, No edema Neurological: Neuro grossly intact Psych/Mental Status: Normal Affect, Appropriate, Alert and oriented to time, place, person, mood and affect Laboratory Results 06/19/20 09:41: WBC 19.4 H, RBC 4.76, Hgb 13.2, Hct 39.8, MCV 83.6, MCH 27.7, MCHC 33.2, RDW Std Deviation 39.7, RDW Coeff of Giuliana 13.0, Plt Count 149 L, MPV 14.1 H, Immature Gran % (Auto) 0.600, Neut % (Auto) 85.1 H, Lymph % (Auto) 8.9 L , [place] % (Auto) 4.8, Eos % (Auto) 0.5, Baso % (Auto) 0.1, Absolute Neuts (auto) 16.5 H, Absolute Lymphs (auto) 1.73, Nucleated RBC % 0 06/19/20 09:45: Blood Type A POSITIVE, Antibody Screen NEGATIVE 06/19/20 10:01: POC Glucose 81 06/19/20 11:18: POC Glucose 82 06/19/20 12:22: POC Glucose 94 06/19/20 13:21: POC Glucose 92 06/19/20 15:00: POC Glucose 78 06/20/20 04:35: WBC 13.8 H, RBC 3.67 L, Hgb 10.5 L, Hct 31.1 L, MCV 84.7, MCH 28.6, MCHC 33.8, RDW Std Deviation 40.0, RDW Coeff of Giuliana 13.2, Plt Count 120 L, MPV 13.9 H 06/20/20 05:41: POC Glucose 104 Current Medications Acetaminophen (Acetaminophen 500 Mg Tablet) 1,000 mg PO Q8H PRN PRN PRN Reason: Pain Score 1-3 Last Admin: 06/19/20 19:38 Dose: 1,000 mg Documented by: Bisacodyl (Bisacodyl 10 Mg Suppository) 10 mg RECTAL UD PRN PRN Reason: If no BM Dibucaine (Dibucaine 30 Gm Tube) 1 applic TOPICAL TID PRN PRN; Protocol PRN Reason: Discomfort Hydrocortisone (Hydrocortisone 2.5% Crm) 1 applic TOPICAL TID PRN PRN; Protocol PRN Reason: Discomfort Ibuprofen (Ibuprofen 600 Mg Tablet) 600 mg PO Q6H PRN PRN PRN Reason: Pain Score 1-3 Last Admin: 06/20/20 04:27 Dose: 600 mg Documented by: Methylergonovine Maleate (Methylergonovine 0.2 Mg/Ml Ampul) 0.2 mg IM X1 PRN PRN Reason: Excess bleeding/uterine atony Ondansetron HCl (Ondansetron 4 Mg/2 Ml Vial) 4 mg IV Q4H PRN PRN PRN Reason: Nausea Oxycodone HCl (Oxycodone 5 Mg Tablet) 5 - 10 mg PO Q4H PRN PRN PRN Reason: Pain Score 4-10 Senna/Docusate Sodium (Senna/Docusate Sodium 1 Tablet) 1 - 2 tablet PO DAILY PRN PRN PRN Reason: Constipation Simethicone (Simethicone 80 Mg Tablet) 80 mg PO PCHS PRN PRN Reason: Indigestion/Stomach pain Sodium Chloride (0.9% Saline Lock 10 Ml Syringe) 5 - 15 ml IV UD PRN PRN Reason: SALINE FLUSH Last Admin: 06/19/20 17:28 Dose: 10 ml Documented by: Zolpidem Tartrate (Zolpidem Tartrate 5 Mg Tablet) 5 mg PO QHS PRN PRN PRN Reason: Insomnia Medical Necessity - Tobacco Use Smoking Status: Never smoker Assessment/Plan day 1. Pain well controlled. Breast-feeding. GDM A1 will need 2- hour GTT at visit. 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
[2020-06-20 07:43] VITALS: BP 131/90; PULSE 74; RESP 16; TEMP 36.2; O2SAT 98
[2020-06-20 12:34] VITALS: BP 124/85; PULSE 65; RESP 16; TEMP 36.2
[2020-06-20 17:08] VITALS: BP 138/90; PULSE 78; RESP 16; TEMP 36.4
[2020-06-20 17:11] VITALS: BP 129/91; PULSE 78
== END 2020-06-20 17:30 | disposition home or self-care (01) | DRG 807 ==
LOC: WPOUT 09:45 → WP 09:45
PROVIDERS: Admitting Provider Obstetrics & Gynecology; Referring Provider Obstetrics & Gynecology; Visit Provider Obstetrics & Gynecology
DX: O24.425 Gestational diabetes mellitus in childbirth, controlled by oral hypoglycemic drugs (principal); Z37.0 Single live birth; O69.2XX0 Labor and delivery complicated by other cord entanglement, with compression, not applicable or unspecified; O70.1 Second degree perineal laceration during delivery; Z3A.39 39 weeks gestation of pregnancy
CPT/HCPCS: 59025; 59050; 82962; 85025; 85027; 86850; 86900; 86901; 99218; J7120; 90686; A4216; G0378